=== PATIENT | male | born 1955 | race American Indian/Alaskan Native ===

== ENCOUNTER 2018-12-01 16:02 | Inpatient (IN) | payer MEDICARE, MEDICAID | END 2018-12-09 12:30 | disposition home or self-care (01) | LOC: ICU 2S 12-02 01:04 → SUR 3N 12-05 10:30 → ER 16:02 → SUR 3N 12-03 15:00 → PACU 23:28 | PROC: 0DTJ0ZZ Resection of Appendix, Open Approach (ICD-10-PCS; principal; 2018-12-01 21:33) | PROC: 0DN80ZZ Release Small Intestine, Open Approach (ICD-10-PCS; 2018-12-01 21:33) | DX: K35.32 Acute appendicitis with perforation, localized peritonitis, and gangrene, without abscess (principal); K65.1 Peritoneal abscess; K56.7 Ileus, unspecified; I25.10 Atherosclerotic heart disease of native coronary artery without angina pectoris; E78.00 Pure hypercholesterolemia, unspecified; K66.0 Peritoneal adhesions (postprocedural) (postinfection) ==

== ENCOUNTER 2021-04-30 11:45 | Emergency (ER) | payer MEDICARE, MEDICAID ==
[~2021-04-30] VITALS: Ht 177.8 cm; Wt 86.0 kg
[~2021-04-30 11:45] MED LIST: ALPR-624 PO; CITA10TA9 PO; FAMO40TA7 PO; SPIR25TA5 PO; THY60T PO; ZOLP10TA5 PO
--- NOTE | 2021-04-30 14:20 | NUR ---
Spoke with pt's . stated that his normal O2 sats are in the high 80's and he was incont. of urine twice over the past few days.
[2021-04-30 14:29] LABS: BASOPHILS # (AUTO) 0.1 X10'3 (0-0.2); BASOPHILS % (AUTO) 1.2 % (0-1); EOSINOPHILS # (AUTO) 0.1 X10'3 (0-0.9); EOSINOPHILS % (AUTO) 1.8 % (0-6); HEMATOCRIT 47.6 % (42.0-52.0); HEMOGLOBIN 15.1 g/dl (14.0-17.9); LYMPHOCYTES # (AUTO) 1.2 X10'3 (1.1-4.8); LYMPHOCYTES % (AUTO) 16.3 % (21-51); MEAN CORPUSCULAR HEMOGLOBIN 28.5 PG (27.0-31.0); MEAN CORPUSCULAR HGB CONC 31.8 g/dL (33.0-36.5); MEAN CORPUSCULAR VOLUME 89.7 FL (78-98); MEAN PLATELET VOLUME 7.5 FL (7.4-10.4); MONOCYTES # (AUTO) 0.8 X10'3 (0-0.9); NEUTROPHILS # (AUTO) 5.4 X10'3 (1.8-7.7); NEUTROPHILS % (AUTO) 70.7 % (42-75); PLATELET COUNT 171 X10'3 (140-440); RED CELL DISTRIBUTION WIDTH 16.1 % (11.5-14.5); WHITE BLOOD COUNT 7.6 X10'3 (4.5-11.0)
[2021-04-30 14:48] LABS: ALANINE AMINOTRANSFERASE 27 U/L (12-78); ALBUMIN 3.6 G/DL (3.4-5.0); ALKALINE PHOSPHATASE 101 IU/L (46-116); ANION GAP 5 (8-16); ASPARTATE AMINO TRANSFERASE 18 U/L (10-37); BILIRUBIN,TOTAL 0.3 MG/DL (0.1-1.0); BLOOD UREA NITROGEN 25 MG/DL (7-18); BUN/CREATININE RATIO 18.2 (5.4-32.0); CALCIUM 7.9 MG/DL (8.5-10.1); CHLORIDE 107 MMOL/L (99-107); CREATININE 1.37 MG/DL (0.60-1.10); GLUCOSE 102 MG/DL (70-104); POTASSIUM 5.4 MMOL/L (3.5-5.1); SODIUM 147 MMOL/L (135-145); TOTAL CARBON DIOXIDE 35.5 MMOL/L (24-32); TOTAL PROTEIN 7.1 G/DL (6.4-8.2); eGFR 52 ML/MIN
[2021-04-30 14:51] LABS: CLARITY,URINE CLEAR (Clear); COLOR,URINE YELLOW (Yellow); GLUCOSE, URINE NEGATIVE (Neg); KETONES,URINE NEGATIVE (Neg); LEUKOCYTE ESTERASE ,URINE NEGATIVE (Neg); NITRITES, URINE NEGATIVE (Neg); OCCULT BLOOD,URINE NEGATIVE (Neg); PH,URINE 5.5 (4.8-8.0); PROTEIN,URINE 30 mg/dl (Neg)
[2021-04-30 14:54] LABS: UA COLLECTION TYPE STRAIGHT CATH
[2021-04-30 14:59] VITALS: BP 151/98
[2021-04-30 15:08] LABS: BACTERIA,URINE FEW /HPF (Neg); RBC,URINE NONE SEEN /HPF (0-2); SQUAMOUS EPITHELIAL CELL,UR FEW /LPF (FEW)
[2021-04-30 15:09] LABS: CELLULAR CAST 0-4 /LPF (NEGATIVE); MUCUS STRANDS MODERATE /LPF (Neg)
[2021-04-30] MEDS ORDERED: CefTRIAXone/D5W-Rocephin 1gm 50 ML IV ONE (15:20)
[2021-04-30] MEDS ORDERED: normal saline 1000ml 1,000 ML IV ONE (15:20)
[2021-04-30] MEDS ORDERED: CEFD300C3 PO (15:21)
== END 2021-04-30 17:20 | disposition home or self-care (01) ==
LOC: ER 11:46
DX: N39.0 Urinary tract infection, site not specified (principal); Z20.822 Contact with and (suspected) exposure to COVID-19; N17.9 Acute kidney failure, unspecified; R09.81 Nasal congestion; R51.9 Headache, unspecified; I25.10 Atherosclerotic heart disease of native coronary artery without angina pectoris; E78.00 Pure hypercholesterolemia, unspecified; I10 Essential (primary) hypertension; K21.9 Gastro-esophageal reflux disease without esophagitis; Z86.14 Personal history of Methicillin resistant Staphylococcus aureus infection; Z85.841 Personal history of malignant neoplasm of brain; Z98.890 Other specified postprocedural states; Z72.89 Other problems related to lifestyle; Z88.5 Allergy status to narcotic agent; Z79.2 Long term (current) use of antibiotics; Z79.899 Other long term (current) drug therapy
CPT/HCPCS: 51702; 96365; 99285; J0696; J7030; 36415; 70450; 71045; 80053; 81001; 83605; 84145; 85025; 87040; 87088; 87635; C9803

== ENCOUNTER 2021-05-02 13:17 | Inpatient (IN) | payer MEDICARE, MEDICAID ==
[~2021-05-02] VITALS: Ht 177.8 cm; Wt 90.9 kg
[~2021-05-02 13:17] MED LIST changes: +CEFD300C3 PO
[2021-05-02 14:06] LABS: BASOPHILS # (AUTO) 0.1 X10'3 (0-0.2); EOSINOPHILS # (AUTO) 0.1 X10'3 (0-0.9); EOSINOPHILS % (AUTO) 2.2 % (0-6); HEMATOCRIT 44.5 % (42.0-52.0); HEMOGLOBIN 14.2 g/dl (14.0-17.9); LYMPHOCYTES % (AUTO) 17.3 % (21-51); MEAN CORPUSCULAR HEMOGLOBIN 28.2 PG (27.0-31.0); MEAN CORPUSCULAR HGB CONC 31.9 g/dL (33.0-36.5); MEAN CORPUSCULAR VOLUME 88.5 FL (78-98); MEAN PLATELET VOLUME 7.3 FL (7.4-10.4); MONOCYTES # (AUTO) 0.6 X10'3 (0-0.9); MONOCYTES % (AUTO) 9.7 % (2-12); NEUTROPHILS % (AUTO) 69.8 % (42-75); PLATELET COUNT 158 X10'3 (140-440); RED BLOOD COUNT 5.03 X10'6 (4.70-6.10); RED CELL DISTRIBUTION WIDTH 15.9 % (11.5-14.5); WHITE BLOOD COUNT 5.7 X10'3 (4.5-11.0)
[2021-05-02] MEDS ORDERED: levoFLOXACIN-Levaquin 750MG/D5 150 ML IV STA (14:18)
[2021-05-02 14:21] LABS: PARTIAL THROMBOPLASTIN TIME 27 SECONDS (22-32)
[2021-05-02 14:25] LABS: ALANINE AMINOTRANSFERASE 26 U/L (12-78); ALBUMIN 3.4 G/DL (3.4-5.0); ALKALINE PHOSPHATASE 94 IU/L (46-116); ANION GAP 3 (8-16); ASPARTATE AMINO TRANSFERASE 17 U/L (10-37); BILIRUBIN,TOTAL 0.6 MG/DL (0.1-1.0); BLOOD UREA NITROGEN 27 MG/DL (7-18); BUN/CREATININE RATIO 20.3 (5.4-32.0); CHLORIDE 108 MMOL/L (99-107); CREATININE 1.33 MG/DL (0.60-1.10); GLUCOSE 103 MG/DL (70-104); POTASSIUM 5.2 MMOL/L (3.5-5.1); SODIUM 147 MMOL/L (135-145); TOTAL CARBON DIOXIDE 36.2 MMOL/L (24-32); TOTAL PROTEIN 6.7 G/DL (6.4-8.2); eGFR 54 ML/MIN
[2021-05-02 15:19] LABS: ABG BASE EXCESS 4.8 mmol/L (-2.0-2.0); ABG HCO3 34.5 mmol/L (22.0-26.0); ABG OXYGEN SATURATION 75.9 % (94-97); ABG PO2 (T) 44.6 mmHg (75.0-100.0); ALLEN'S TEST POSITIVE; FCOHb 1.9 % (0.0-3.9); FMetHb 0.2 % (0.0-1.5); FO2Hb 74.3 % (94-97); TOTAL HEMOGLOBIN 15.1 G/dl (14.0-18.0)
[2021-05-02] MEDS ORDERED: potassium Cl 40MEQ/1/2NS 520ml 520 ML IV PRN ×2 (16:15)
[2021-05-02] MEDS ORDERED: PERFLUTREN PROTEIN-A MICROSPHR (Optison) 0.22 MG/ML 3ML VIAL IV ONE (16:15)
[2021-05-02] MEDS ORDERED: ondansetron/PF 4mg/2ml inj IV PRN (16:15)
[2021-05-02] MEDS ORDERED: mag hydrox/Alum hydrox/simeth 30ml oral suspension PO PRN (16:15)
[2021-05-02] MEDS ORDERED: magnesium hydroxide 30ml (MOM) UD suspension PO PRN (16:15)
[2021-05-02] MEDS ORDERED: TEST75GE10 TP (16:31)
[2021-05-02] MEDS ORDERED: CHOL10006 PO (16:31)
[2021-05-02] MEDS ORDERED: OMEP-50 PO (16:31)
[2021-05-02] MEDS ORDERED: THY60T PO (16:31)
[2021-05-02] MEDS ORDERED: ZOLP10TA PO (16:31)
[2021-05-02] MEDS: normal saline 1000ml 1,000 ML IV SCH ×3 (16:53→20:14)
[2021-05-02] MEDS ORDERED: PERFLUTREN PROTEIN-A MICROSPHR (Optison) 0.22 MG/ML 3ML VIAL IV PRN (17:15)
[2021-05-02] MEDS: K and/or MAG REPLACEMENT MC SCH (20:00)
[2021-05-02] MEDS: heparin, porcine 5000 units/ml vial SQ SCH (20:00)
[2021-05-02] MEDS: docusate sod 100mg capsule PO SCH (20:00)
--- NOTE | 2021-05-02 20:00 | NUR ---
Pt is anxious and requesting xanax 1mg as he is prescribed at home. Paging Dr. Santos to request order. Will continue to monitor.
[2021-05-02 20:28] LABS: CLARITY,URINE CLEAR (Clear); COLOR,URINE YELLOW (Yellow); GLUCOSE, URINE NEGATIVE (Neg); KETONES,URINE NEGATIVE (Neg); LEUKOCYTE ESTERASE ,URINE NEGATIVE (Neg); NITRITES, URINE NEGATIVE (Neg); OCCULT BLOOD,URINE NEGATIVE (Neg); PH,URINE 5.5 (4.8-8.0); PROTEIN,URINE NEGATIVE (Neg)
[2021-05-02 20:42] LABS: UA COLLECTION TYPE NON-SPECIFIED
[2021-05-02 20:55] LABS: URINE AMPHETAMINE SCREEN NEGATIVE (Neg); URINE BARBITUATE SCREEN NEGATIVE (Neg); URINE BENZODIAZEPINES SCREEN NEGATIVE (Neg); URINE CANNABINOID SCREEN NEGATIVE (Neg); URINE COCAINE SCREEN NEGATIVE (Neg); URINE METHADONE SCREEN NEGATIVE (Neg); URINE OPIATE SCREEN NEGATIVE (Neg); URINE PHENCYCLIDINE SCREEN NEGATIVE (Neg)
[2021-05-02] MEDS: zolpidem 5mg tablet PO PRN (22:15)
[2021-05-03] MEDS: acetaminophen 325mg tablet PO PRN ×2 (06:27→21:09)
--- NOTE | 2021-05-03 07:31 | NUR ---
pt's phone [phone]
[2021-05-03 07:50] LABS: BASOPHILS # (AUTO) 0.1 X10'3 (0-0.2); BASOPHILS % (AUTO) 1.2 % (0-1); EOSINOPHILS # (AUTO) 0.2 X10'3 (0-0.9); EOSINOPHILS % (AUTO) 2.8 % (0-6); HEMATOCRIT 45.1 % (42.0-52.0); HEMOGLOBIN 14.3 g/dl (14.0-17.9); LYMPHOCYTES # (AUTO) 1.4 X10'3 (1.1-4.8); LYMPHOCYTES % (AUTO) 21.7 % (21-51); MEAN CORPUSCULAR HEMOGLOBIN 28.3 PG (27.0-31.0); MEAN CORPUSCULAR HGB CONC 31.6 g/dL (33.0-36.5); MEAN CORPUSCULAR VOLUME 89.6 FL (78-98); MEAN PLATELET VOLUME 7.3 FL (7.4-10.4); MONOCYTES # (AUTO) 0.6 X10'3 (0-0.9); MONOCYTES % (AUTO) 9.9 % (2-12); NEUTROPHILS % (AUTO) 64.4 % (42-75); PLATELET COUNT 140 X10'3 (140-440); RED BLOOD COUNT 5.03 X10'6 (4.70-6.10); RED CELL DISTRIBUTION WIDTH 15.7 % (11.5-14.5); WHITE BLOOD COUNT 6.3 X10'3 (4.5-11.0)
[2021-05-03 08:00] LABS: ALANINE AMINOTRANSFERASE 25 U/L (12-78); ALBUMIN 3.4 G/DL (3.4-5.0); ALBUMIN/GLOBULIN RATIO 1.1 (1.1-1.5); ALKALINE PHOSPHATASE 111 IU/L (46-116); ANION GAP 3 (8-16); ASPARTATE AMINO TRANSFERASE 22 U/L (10-37); BILIRUBIN,TOTAL 0.9 MG/DL (0.1-1.0); BLOOD UREA NITROGEN 23 MG/DL (7-18); BUN/CREATININE RATIO 19.5 (5.4-32.0); CHLORIDE 108 MMOL/L (99-107); CREATININE 1.18 MG/DL (0.60-1.10); GLUCOSE 75 MG/DL (70-104); POTASSIUM 4.6 MMOL/L (3.5-5.1); SODIUM 145 MMOL/L (135-145); TOTAL CARBON DIOXIDE 33.6 MMOL/L (24-32); TOTAL PROTEIN 6.6 G/DL (6.4-8.2); eGFR 62 ML/MIN
[2021-05-03] MEDS ORDERED: CefTRIAXone/D5W-Rocephin 1gm 50 ML IV SCH (08:00)
[2021-05-03] MEDS: docusate sod 100mg capsule PO SCH ×2 (08:00→20:00)
[2021-05-03] MEDS: K and/or MAG REPLACEMENT MC SCH ×2 (08:00→20:00)
[2021-05-03] MEDS: pantoprazole 40mg Tablet.DR PO SCH (13:08)
[2021-05-03] MEDS: lisinopril 5mg tablet PO SCH (13:09)
[2021-05-03] MEDS: thyroid, pork 30mg tablet PO SCH (13:09)
[2021-05-03] MEDS: heparin, porcine 5000 units/ml vial SQ SCH ×2 (13:10→21:09)
[2021-05-03] MEDS: piperacillin/tazo 3.375gm/50ml 50 ML IV SCH (14:49)
--- NOTE | 2021-05-03 19:51 | NUR ---
PT REQUESTS TO NOT HAVE LEADS PLACED ON HIM. HE IS OK WITH BP CUFF AND O2 SAT ON FINGER.
[2021-05-03] MEDS: zolpidem 5mg tablet PO PRN (21:08)
[2021-05-04] MEDS: piperacillin/tazo 3.375gm/50ml 50 ML IV SCH ×4 (00:32→23:24)
--- NOTE | 2021-05-04 01:00 | NUR ---
PT DESATS QUICKLY TO LOW 60S WHEN HE TAKES HIS OXYGEN OFF. REPEATEDLY HAS GOTTEN OFF BED TO WANDER IN UNIT. PT BROUGHT BACK TO BED AND PLACED BACK ON OXYGEN. SATURATION BACK TO 90S WITHIN 3 MINUTES.
[2021-05-04 04:51] LABS: BASOPHILS # (AUTO) 0.1 X10'3 (0-0.2); BASOPHILS % (AUTO) 1.2 % (0-1); EOSINOPHILS # (AUTO) 0.2 X10'3 (0-0.9); EOSINOPHILS % (AUTO) 3.4 % (0-6); HEMATOCRIT 46.2 % (42.0-52.0); HEMOGLOBIN 14.8 g/dl (14.0-17.9); LYMPHOCYTES # (AUTO) 1.2 X10'3 (1.1-4.8); LYMPHOCYTES % (AUTO) 19.6 % (21-51); MEAN CORPUSCULAR HEMOGLOBIN 28.2 PG (27.0-31.0); MEAN CORPUSCULAR HGB CONC 32.1 g/dL (33.0-36.5); MEAN PLATELET VOLUME 7.4 FL (7.4-10.4); MONOCYTES # (AUTO) 0.7 X10'3 (0-0.9); MONOCYTES % (AUTO) 10.5 % (2-12); NEUTROPHILS # (AUTO) 4.1 X10'3 (1.8-7.7); NEUTROPHILS % (AUTO) 65.3 % (42-75); PLATELET COUNT 150 X10'3 (140-440); RED BLOOD COUNT 5.25 X10'6 (4.70-6.10); RED CELL DISTRIBUTION WIDTH 15.4 % (11.5-14.5); WHITE BLOOD COUNT 6.3 X10'3 (4.5-11.0)
[2021-05-04 05:04] LABS: ALANINE AMINOTRANSFERASE 21 U/L (12-78); ALBUMIN 3.5 G/DL (3.4-5.0); ALBUMIN/GLOBULIN RATIO 1.1 (1.1-1.5); ALKALINE PHOSPHATASE 116 IU/L (46-116); ANION GAP 0 (8-16); ASPARTATE AMINO TRANSFERASE 23 U/L (10-37); BILIRUBIN,TOTAL 1.4 MG/DL (0.1-1.0); BLOOD UREA NITROGEN 18 MG/DL (7-18); BUN/CREATININE RATIO 15.1 (5.4-32.0); CALCIUM 8.3 MG/DL (8.5-10.1); CHLORIDE 105 MMOL/L (99-107); CREATININE 1.19 MG/DL (0.60-1.10); GLUCOSE 73 MG/DL (70-104); POTASSIUM 4.4 MMOL/L (3.5-5.1); SODIUM 144 MMOL/L (135-145); TOTAL CARBON DIOXIDE 38.8 MMOL/L (24-32); TOTAL PROTEIN 6.7 G/DL (6.4-8.2); eGFR 62 ML/MIN
--- NOTE | 2021-05-04 06:55 | NUR ---
Patient in room ED HALL13. I have received report from Torrie HUFF and had the opportunity to ask questions to prepare to assume patient care when pt brought to PCU 3025B. Per Torrie, pt impulsive, with intermittent confusion. BP elevated at 159/105, but SPO2 stable. no chest pain. room prepared.
[2021-05-04 08:00] VITALS: BP 196/112
[2021-05-04] MEDS: K and/or MAG REPLACEMENT MC SCH ×2 (08:00→20:00)
--- NOTE | 2021-05-04 08:23 | NUR ---
Pt hypertensive. Dr. Doty paged. PAGER ID: [phone] MESSAGE: RE: Rickey Troncoso: [id number]: + HTN: 196/112. will give scheduled lisinopril. I would like school bus monitor orders, and possibly prn antihypertensive? Thank you -Denice #[phone]
[2021-05-04] MEDS: pantoprazole 40mg Tablet.DR PO SCH (08:56)
[2021-05-04] MEDS: lisinopril 5mg tablet PO SCH (08:57)
[2021-05-04] MEDS: hydrALAZINE 20mg/ml inj. IV PRN ×2 (08:58→20:27)
[2021-05-04] MEDS: heparin, porcine 5000 units/ml vial SQ SCH ×3 (08:58→20:27)
[2021-05-04] MEDS: docusate sod 100mg capsule PO SCH ×2 (09:06→19:36)
--- NOTE | 2021-05-04 10:20 | NUR ---
zosyn administered when arrived from pharmacy. thyroid med will be administered when arrives/coordinate with empty stomach.
[2021-05-04 11:00] VITALS: BP 140/84
[2021-05-04] MEDS: thyroid, pork 30mg tablet PO SCH (11:40)
[2021-05-04] MEDS ORDERED: amLODIPine 5mg tablet PO ONE (13:25)
[2021-05-04 15:00] VITALS: BP 153/88
[2021-05-04] MEDS: normal saline 1000ml 1,000 ML IV SCH (17:14)
[2021-05-04 18:00] VITALS: BP 171/94
--- NOTE | 2021-05-04 18:43 | NUR ---
Patient in room PCU 3025. I have received report from DARIA Galdamez and had the opportunity to ask questions and assume patient care.
--- NOTE | 2021-05-04 19:01 | NUR ---
Problems reprioritized. Patient report given, questions answered & plan of care reviewed with Amy HUFF. Pt supine in bed, no SOB.
[2021-05-04] MEDS: acetaminophen 325mg tablet PO PRN (20:55)
[2021-05-04] MEDS: zolpidem 5mg tablet PO PRN ×2 (20:56→22:31)
--- NOTE | 2021-05-04 21:30 | NUR ---
Placed patient on bedside O2 monitor as he states his O2 drops when sleeping. RT came to see patient, states bedside O2 monitor reading incorrectly. Placed vitals machine with patient. RT gave breathing treatment and moved him from 30% venti mask to 40% venti mask.
[2021-05-04] MEDS: ipratropium/albuterol 3ml nebule NEB PRN (21:56)
--- NOTE | 2021-05-04 22:47 | NUR ---
Per tele, Pt had 10 second run of SVT. paged.
[2021-05-04 22:55] VITALS: BP 129/78
--- NOTE | 2021-05-04 23:55 | NUR ---
paged 2nd time, no response from 1st page.
--- NOTE | 2021-05-05 00:26 | NUR ---
made aware, no new orders.
[2021-05-05 02:00] VITALS: BP 144/87
[2021-05-05] MEDS: acetaminophen 325mg tablet PO PRN ×2 (02:32→21:45)
[2021-05-05 05:54] LABS: BASOPHILS # (AUTO) 0.1 X10'3 (0-0.2); BASOPHILS % (AUTO) 1.3 % (0-1); EOSINOPHILS # (AUTO) 0.2 X10'3 (0-0.9); EOSINOPHILS % (AUTO) 2.9 % (0-6); HEMATOCRIT 47.8 % (42.0-52.0); HEMOGLOBIN 15.4 g/dl (14.0-17.9); LYMPHOCYTES # (AUTO) 1.3 X10'3 (1.1-4.8); LYMPHOCYTES % (AUTO) 21.4 % (21-51); MEAN CORPUSCULAR HEMOGLOBIN 28.1 PG (27.0-31.0); MEAN CORPUSCULAR HGB CONC 32.2 g/dL (33.0-36.5); MEAN CORPUSCULAR VOLUME 87.3 FL (78-98); MEAN PLATELET VOLUME 6.9 FL (7.4-10.4); MONOCYTES # (AUTO) 0.7 X10'3 (0-0.9); MONOCYTES % (AUTO) 11.4 % (2-12); NEUTROPHILS # (AUTO) 3.9 X10'3 (1.8-7.7); PLATELET COUNT 152 X10'3 (140-440); RED BLOOD COUNT 5.47 X10'6 (4.70-6.10); RED CELL DISTRIBUTION WIDTH 15.5 % (11.5-14.5); WHITE BLOOD COUNT 6.2 X10'3 (4.5-11.0)
[2021-05-05 06:06] LABS: ALANINE AMINOTRANSFERASE 21 U/L (12-78); ALBUMIN 3.4 G/DL (3.4-5.0); ALKALINE PHOSPHATASE 106 IU/L (46-116); ANION GAP 3 (8-16); ASPARTATE AMINO TRANSFERASE 23 U/L (10-37); BILIRUBIN,TOTAL 1.2 MG/DL (0.1-1.0); BLOOD UREA NITROGEN 16 MG/DL (7-18); BUN/CREATININE RATIO 12.8 (5.4-32.0); CALCIUM 8.5 MG/DL (8.5-10.1); CHLORIDE 106 MMOL/L (99-107); CREATININE 1.25 MG/DL (0.60-1.10); GLUCOSE 110 MG/DL (70-104); POTASSIUM 4.1 MMOL/L (3.5-5.1); SODIUM 144 MMOL/L (135-145); TOTAL CARBON DIOXIDE 35.5 MMOL/L (24-32); TOTAL PROTEIN 6.7 G/DL (6.4-8.2); eGFR 58 ML/MIN
--- NOTE | 2021-05-05 06:39 | NUR ---
Problems reprioritized. Patient report given, questions answered & plan of care reviewed with DARIA Sow.
--- NOTE | 2021-05-05 06:40 | NUR ---
Patient in room PCU 3025. I have received report from DARIA Reyes and had the opportunity to ask questions and assume patient care.
[2021-05-05 07:00] VITALS: BP 122/89
[2021-05-05] MEDS: docusate sod 100mg capsule PO SCH ×2 (08:00→19:35)
[2021-05-05] MEDS: K and/or MAG REPLACEMENT MC SCH ×2 (08:00→19:35)
[2021-05-05] MEDS: ipratropium/albuterol 3ml nebule NEB PRN (08:17)
[2021-05-05] MEDS: pantoprazole 40mg Tablet.DR PO SCH (09:34)
[2021-05-05] MEDS: thyroid, pork 30mg tablet PO SCH (09:34)
[2021-05-05] MEDS: amLODIPine 5mg tablet PO SCH (09:34)
[2021-05-05] MEDS: piperacillin/tazo 3.375gm/50ml 50 ML IV SCH ×3 (09:34→23:01)
[2021-05-05] MEDS: lisinopril 5mg tablet PO SCH (09:35)
[2021-05-05] MEDS: heparin, porcine 5000 units/ml vial SQ SCH ×2 (09:36→19:36)
--- NOTE | 2021-05-05 10:28 | NUR ---
Paged Dr Doty PAGER ID: [phone] MESSAGE: Rickey Lanier [id number] Pt is requesting to be a full code. The would like an update and has questions. Candy [phone] Thanks Magi [phone]
[2021-05-05 11:00] VITALS: BP 139/86
--- NOTE | 2021-05-05 11:22 | NUR ---
Malnutrition consult. Pt admitted w/ increased confusion, though A&O x 4 today per EMR. 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 Pt seen by ST today and recommended SB6. Pt unable to verbally communicated d/t tracheostomy, but able to use hand gestures. Pt denies recent wt loss, denies decrease in appetite. No visible wasting observed at bedside, no edema noted. At this time, pt does not meet minimum criteria for malnutrition. Will continue to monitor. Addendum: 05/05/21 at [address] Amended: Links added.
[2021-05-05] MEDS ORDERED: ipratropium/albuterol 3ml nebule NEB SCH (14:00)
--- NOTE | 2021-05-05 14:57 | NUR ---
Re Rickey Troncoso [id number] Pt's water humidification bottle is empty. Thanks
[2021-05-05 15:00] VITALS: BP 150/92
[2021-05-05] MEDS: ipratropium/albuterol 3ml nebule NEB SCH ×2 (15:31→21:46)
--- NOTE | 2021-05-05 15:57 | NUR ---
Paged Dr Doty PAGER ID: [phone] MESSAGE: Rickey Lanier [id number] Can you call me please? Pt has bouts of sleep apnea when sleeping. Thanks Magi [phone]
[2021-05-05 18:00] VITALS: BP 156/84
--- NOTE | 2021-05-05 18:24 | NUR ---
Patient in room PCU 3025. I have received report from Magi HUFF and had the opportunity to ask questions and assume patient care.
--- NOTE | 2021-05-05 18:28 | NUR ---
Problems reprioritized. Patient report given, questions answered & plan of care reviewed with DARIA Calixto. Pt sitting up eating dinner independently. All pt needs met at this time.
[2021-05-05] MEDS: lactobacillus rhamnosus 10,000 MMU CELLS/CAPSULE PO SCH (19:35)
[2021-05-05 22:00] VITALS: BP 168/101
[2021-05-05] MEDS: hydrALAZINE 20mg/ml inj. IV PRN (22:29)
[2021-05-05] MEDS: zolpidem 5mg tablet PO PRN (22:34)
[2021-05-06 02:00] VITALS: BP 107/73
[2021-05-06] MEDS: ipratropium/albuterol 3ml nebule NEB SCH ×4 (02:13→21:00)
--- NOTE | 2021-05-06 06:15 | NUR ---
Problems reprioritized. Patient report given, questions answered & plan of care reviewed with Magi HUFF at bedside.
[2021-05-06 06:24] LABS: BASOPHILS # (AUTO) 0.1 X10'3 (0-0.2); BASOPHILS % (AUTO) 0.8 % (0-1); EOSINOPHILS # (AUTO) 0.2 X10'3 (0-0.9); EOSINOPHILS % (AUTO) 3.2 % (0-6); HEMATOCRIT 46.7 % (42.0-52.0); HEMOGLOBIN 15.1 g/dl (14.0-17.9); LYMPHOCYTES # (AUTO) 1.7 X10'3 (1.1-4.8); LYMPHOCYTES % (AUTO) 25.2 % (21-51); MEAN CORPUSCULAR HEMOGLOBIN 28.2 PG (27.0-31.0); MEAN CORPUSCULAR HGB CONC 32.3 g/dL (33.0-36.5); MEAN CORPUSCULAR VOLUME 87.4 FL (78-98); MEAN PLATELET VOLUME 7.6 FL (7.4-10.4); MONOCYTES # (AUTO) 0.8 X10'3 (0-0.9); MONOCYTES % (AUTO) 11.4 % (2-12); NEUTROPHILS # (AUTO) 3.9 X10'3 (1.8-7.7); NEUTROPHILS % (AUTO) 59.4 % (42-75); PLATELET COUNT 155 X10'3 (140-440); RED BLOOD COUNT 5.35 X10'6 (4.70-6.10); RED CELL DISTRIBUTION WIDTH 15.8 % (11.5-14.5); WHITE BLOOD COUNT 6.6 X10'3 (4.5-11.0)
[2021-05-06 06:40] LABS: ALANINE AMINOTRANSFERASE 18 U/L (12-78); ALBUMIN 3.4 G/DL (3.4-5.0); ALBUMIN/GLOBULIN RATIO 1.1 (1.1-1.5); ALKALINE PHOSPHATASE 97 IU/L (46-116); ANION GAP 8 (8-16); ASPARTATE AMINO TRANSFERASE 19 U/L (10-37); BILIRUBIN,TOTAL 0.9 MG/DL (0.1-1.0); BLOOD UREA NITROGEN 14 MG/DL (7-18); BUN/CREATININE RATIO 12.4 (5.4-32.0); CALCIUM 8.8 MG/DL (8.5-10.1); CHLORIDE 108 MMOL/L (99-107); CREATININE 1.13 MG/DL (0.60-1.10); GLUCOSE 98 MG/DL (70-104); POTASSIUM 3.9 MMOL/L (3.5-5.1); SODIUM 148 MMOL/L (135-145); TOTAL CARBON DIOXIDE 32.5 MMOL/L (24-32); TOTAL PROTEIN 6.5 G/DL (6.4-8.2); eGFR 65 ML/MIN
[2021-05-06 07:00] VITALS: BP 159/96
[2021-05-06] MEDS: K and/or MAG REPLACEMENT MC SCH ×2 (08:00→20:00)
[2021-05-06] MEDS: docusate sod 100mg capsule PO SCH ×2 (08:00→20:00)
[2021-05-06] MEDS: thyroid, pork 30mg tablet PO SCH (08:36)
[2021-05-06] MEDS: piperacillin/tazo 3.375gm/50ml 50 ML IV SCH ×2 (08:36→15:51)
[2021-05-06] MEDS: lactobacillus rhamnosus 10,000 MMU CELLS/CAPSULE PO SCH ×2 (08:36→19:13)
[2021-05-06] MEDS: heparin, porcine 5000 units/ml vial SQ SCH ×2 (08:39→19:14)
[2021-05-06] MEDS: pantoprazole 40mg Tablet.DR PO SCH (08:39)
--- NOTE | 2021-05-06 09:19 | NUR ---
Initial: Pt admitted w/ increased confusion and SOB, though A&O x 4 today per EMR. 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 Pt seen by ST 05/05 and recommended SB6. Pt able to eat mostly 100% of meals since admission. No N/V/D noted, LB 05/05. No nutritional intervention implemented at this time, will continue to monitor. Recs: 1. Continue Regular/SB6 diet per ST recs 2. Bowel care per rx 3. Weekly wts Addendum: 05/06/21 at 0920 by [address] M [address]or[address]ano RD Amended: Links added.
[2021-05-06 11:00] VITALS: BP 130/79
[2021-05-06] MEDS: amLODIPine 5mg tablet PO SCH (12:35)
[2021-05-06] MEDS: furosemide 20 MG/2 ML vial IV SCH ×2 (12:35→19:13)
--- NOTE | 2021-05-06 12:55 | NUR ---
Paged Respiratory to discuss pt being weaned off . Re Rickey Troncoso [id number] Pepe can you call me please. [phone] Thanks :)
--- NOTE | 2021-05-06 13:58 | NUR ---
Paged Dr Bryson PAGER ID: [phone] MESSAGE: Marika Troncoso Rickey [id number] Pt has been off 02 for 1.5 hours, sating around 90-93%. When he fell asleep, his 02 dropped into the 60s, after aroused, went back to 94% on room air. Thanks Magi [phone]
[2021-05-06 15:00] VITALS: BP 128/83
[2021-05-06] MEDS: lisinopril 5mg tablet PO SCH (15:52)
[2021-05-06] MEDS: normal saline 1000ml 1,000 ML IV SCH (17:07)
[2021-05-06 18:00] VITALS: BP 91/63
--- NOTE | 2021-05-06 18:00 | NUR ---
Patient in room PCU 3025. I have received report from Christ and had the opportunity to ask questions and assume patient care.
--- NOTE | 2021-05-06 18:36 | NUR ---
Problems reprioritized. Patient report given, questions answered & plan of care reviewed with DARIA Henriquez. Pt sitting up in bed, watching tv comfortably. All pt needs met at this time.
--- NOTE | 2021-05-06 21:52 | NUR ---
TC FROM - REQUESTING NEW CHEST XRAY
[2021-05-06 22:00] VITALS: BP 168/107
[2021-05-07] MEDS: zolpidem 5mg tablet PO PRN (00:14)
[2021-05-07] MEDS: piperacillin/tazo 3.375gm/50ml 50 ML IV SCH ×2 (00:14→10:22)
[2021-05-07] MEDS: hydrALAZINE 20mg/ml inj. IV PRN (01:54)
[2021-05-07 02:00] VITALS: BP 116/65
--- NOTE | 2021-05-07 02:19 | NUR ---
Isabele reported BP of 201/117 at 0200, Gave pt PRN hydralazine 10mg, BP at 0211 116/65. pt doing well, doesnt report any side effects.
[2021-05-07] MEDS: ipratropium/albuterol 3ml nebule NEB SCH ×3 (02:21→15:00)
[2021-05-07 06:00] VITALS: BP 90/61
[2021-05-07 06:08] LABS: BASOPHILS # (AUTO) 0.1 X10'3 (0-0.2); BASOPHILS % (AUTO) 0.9 % (0-1); EOSINOPHILS # (AUTO) 0.3 X10'3 (0-0.9); EOSINOPHILS % (AUTO) 3.9 % (0-6); HEMATOCRIT 48.8 % (42.0-52.0); HEMOGLOBIN 15.6 g/dl (14.0-17.9); LYMPHOCYTES % (AUTO) 22.8 % (21-51); MEAN CORPUSCULAR HEMOGLOBIN 28.2 PG (27.0-31.0); MEAN CORPUSCULAR HGB CONC 32.1 g/dL (33.0-36.5); MEAN CORPUSCULAR VOLUME 87.9 FL (78-98); MEAN PLATELET VOLUME 7.7 FL (7.4-10.4); MONOCYTES # (AUTO) 0.9 X10'3 (0-0.9); MONOCYTES % (AUTO) 10.6 % (2-12); NEUTROPHILS # (AUTO) 5.3 X10'3 (1.8-7.7); NEUTROPHILS % (AUTO) 61.8 % (42-75); PLATELET COUNT 163 X10'3 (140-440); RED BLOOD COUNT 5.55 X10'6 (4.70-6.10); RED CELL DISTRIBUTION WIDTH 16.2 % (11.5-14.5); WHITE BLOOD COUNT 8.6 X10'3 (4.5-11.0)
--- NOTE | 2021-05-07 06:30 | NUR ---
Problems reprioritized. Patient report given, questions answered & plan of care reviewed with Mandi.
[2021-05-07 06:38] LABS: ALANINE AMINOTRANSFERASE 19 U/L (12-78); ALBUMIN 3.6 G/DL (3.4-5.0); ALBUMIN/GLOBULIN RATIO 1.2 (1.1-1.5); ALKALINE PHOSPHATASE 93 IU/L (46-116); ANION GAP 9 (8-16); ASPARTATE AMINO TRANSFERASE 28 U/L (10-37); BILIRUBIN,TOTAL 1.1 MG/DL (0.1-1.0); BLOOD UREA NITROGEN 22 MG/DL (7-18); BUN/CREATININE RATIO 15.6 (5.4-32.0); CALCIUM 8.8 MG/DL (8.5-10.1); CHLORIDE 107 MMOL/L (99-107); CREATININE 1.41 MG/DL (0.60-1.10); GLUCOSE 86 MG/DL (70-104); POTASSIUM 3.7 MMOL/L (3.5-5.1); SODIUM 148 MMOL/L (135-145); TOTAL CARBON DIOXIDE 31.6 MMOL/L (24-32); TOTAL PROTEIN 6.7 G/DL (6.4-8.2); eGFR 51 ML/MIN
--- NOTE | 2021-05-07 06:53 | NUR ---
Patient in room PCU 3025. I have received report from Florence HUFF and had the opportunity to ask questions and assume patient care. Pt semi fowlers in bed, alert to voice, trach collar in place with O2 @ 9LPM. SPO2 97%. pt verbal with hoarse voice through blocked trach stoma. safety measures in place and maintained. no s/sx acute distress
--- NOTE | 2021-05-07 07:51 | NUR ---
RT paged. "RE: alyson Troncoso [id number]: Trach collar too heavy with water, and pulling away from pt from the weight. pt becoming very anxious. please assist. Thank you, -Denice"
[2021-05-07] MEDS: K and/or MAG REPLACEMENT MC SCH (08:00)
--- NOTE | 2021-05-07 09:49 | NUR ---
Dr. Cote to see pt. requesting RT bring trach he can place now. RT paged. Addendum: 05/07/21 at 0951 by Denice Mars RN RT paged. "RE: Jamari Troncoso: [phone] Dr. Quintero here wanting RT at bedside and to being supplies to place trach hardware in stoma. -Denice "
[2021-05-07] MEDS: docusate sod 100mg capsule PO SCH (10:17)
[2021-05-07] MEDS: lactobacillus rhamnosus 10,000 MMU CELLS/CAPSULE PO SCH (10:17)
[2021-05-07] MEDS: thyroid, pork 30mg tablet PO SCH (10:17)
[2021-05-07] MEDS: pantoprazole 40mg Tablet.DR PO SCH (10:20)
[2021-05-07] MEDS: amLODIPine 5mg tablet PO SCH (10:20)
[2021-05-07] MEDS: lisinopril 5mg tablet PO SCH (10:20)
[2021-05-07] MEDS: furosemide 20 MG/2 ML vial IV SCH (10:20)
[2021-05-07] MEDS: heparin, porcine 5000 units/ml vial SQ SCH (10:21)
[2021-05-07 11:00] VITALS: BP 132/71
--- NOTE | 2021-05-07 11:17 | NUR ---
Dr Cote and Dr Bryson to unit to discuss pt care LT[facility] with trach bipap while pt asleep goal for POC. RT present. classified advertising manager notified of MD intention to sent pt to LTAC. pt in agreement with POC.
[2021-05-07] MEDS: acetaminophen 325mg tablet PO PRN (11:21)
--- NOTE | 2021-05-07 11:29 | NUR ---
Pt left for Nuc med to VQ scan lungs.
[2021-05-07] MEDS ORDERED: normal saline 1000ml 1,000 ML IV SCH (11:45)
--- NOTE | 2021-05-07 11:58 | NUR ---
Pt return from VQ scan attempt. VQ scan not completed due to complications with trach per pt. Dr. Bryson paged. "PAGER ID: [phone] MESSAGE: RE: Rickey Troncoso: [id number]: VQ scan attempt unsuccessful. per pt, they were not able to compete the test because they could not seal his trach? would you like a CT scan of lungs instead? -Denice #[phone]"
[2021-05-07] MEDS ORDERED: IODIXANOL 320 MG/ML INFUS..BTL 100ML IV ONE (12:17)
--- NOTE | 2021-05-07 15:15 | NUR ---
pt refused vs assessment.
--- NOTE | 2021-05-07 16:40 | NUR ---
Pt stable for transfer to [facility] per MD order. Report called to Fani HUFF at [facility] on [address]. all questions answered. PIV in RAC intact, patent and left for [facility] nurses to utilize for infusions. Addendum: 05/07/21 at 1717 by Denice Mars RN Pt left via [place] accompanied by ambulance personnel x2. pt transferred to [facility] without issue, no sob. no s/sx acute distress when pt left unit at 1712
== END 2021-05-07 17:16 | DRG 177 ==
LOC: ER 13:19 → ED HOLD 16:15 → EDBEDREQ 05-04 05:59 → PCU 3S 05-04 07:47
PROVIDERS: ADMIT Internal Medicine; ATTEND Family Medicine
PROC: B32T1ZZ Computerized Tomography (CT Scan) of Left Pulmonary Artery using Low Osmolar Contrast (ICD-10-PCS; principal; 2021-05-07)
PROC: B3201ZZ Computerized Tomography (CT Scan) of Thoracic Aorta using Low Osmolar Contrast (ICD-10-PCS; 2021-05-07)
PROC: B32S1ZZ Computerized Tomography (CT Scan) of Right Pulmonary Artery using Low Osmolar Contrast (ICD-10-PCS; 2021-05-07)
DX: J69.0 Pneumonitis due to inhalation of food and vomit (principal); J96.01 Acute respiratory failure with hypoxia; E87.2 Acidosis; I50.813 Acute on chronic right heart failure; I25.10 Atherosclerotic heart disease of native coronary artery without angina pectoris; E03.9 Hypothyroidism, unspecified; Z66 Do not resuscitate; E78.00 Pure hypercholesterolemia, unspecified; E78.5 Hyperlipidemia, unspecified; G47.00 Insomnia, unspecified; Z20.822 Contact with and (suspected) exposure to COVID-19; I27.20 Pulmonary hypertension, unspecified; I11.0 Hypertensive heart disease with heart failure; K21.9 Gastro-esophageal reflux disease without esophagitis; G47.31 Primary central sleep apnea; Z79.899 Other long term (current) drug therapy; Z85.841 Personal history of malignant neoplasm of brain; Z87.891 Personal history of nicotine dependence; Z93.0 Tracheostomy status; Z87.440 Personal history of urinary (tract) infections; Z88.5 Allergy status to narcotic agent; Z86.14 Personal history of Methicillin resistant Staphylococcus aureus infection; Z95.1 Presence of aortocoronary bypass graft; Z98.61 Coronary angioplasty status; Z74.01 Bed confinement status
CPT/HCPCS: 36415; 36600; 70450; 71045; 71275; 80053; 80305; 81001; 81003; 82803; 82948; 83605; 83880; 84145; 84443; 84484; 85018; 85025; 85610; 85730; 86885; 86900; 86901; 87040; 87081; 87088; 87635; 92508; 92616; 93005; 93306; 93970; 94640; 94760; 96365; 99285; C9803; G0378; J0360; J1644; J1940; J1956; J2543; J7030; Q9967

== ENCOUNTER 2022-05-19 09:54 | Day surgery (SDC) | payer MEDICARE, MEDICAID ==
[2022-05-19] VITALS (10 sets, daily range): BP systolic 105–171; BP diastolic 58–137
[~2022-05-19] VITALS: Ht 177.8 cm; Wt 90.7 kg
[~2022-05-19 09:54] MED LIST changes: -ALPR-624 PO; -CEFD300C3 PO; +CHOL10006 PO; -CITA10TA9 PO; +DIPH25CA83 PO; -FAMO40TA7 PO; +OMEP20CA16 PO; +TEST75GE10 TP; -ZOLP10TA5 PO; +ceFAZolin inj. 2,000 MG in dextrose 5%-water 100 ML IV ONE; +famotidine 20mg tablet PO ONE; +ringers solution, lacted 1,000 ML IV SCH
[2022-05-19 11:51] LABS: BASOPHILS % (AUTO) 0.6 % (0-1); EOSINOPHILS # (AUTO) 0.2 X10'3 (0-0.9); EOSINOPHILS % (AUTO) 2.3 % (0-6); LYMPHOCYTES # (AUTO) 1.7 X10'3 (1.1-4.8); LYMPHOCYTES % (AUTO) 19.6 % (21-51); MEAN CORPUSCULAR HEMOGLOBIN 28.3 PG (27.0-31.0); MEAN CORPUSCULAR HGB CONC 34.4 g/dL (33.0-36.5); MEAN CORPUSCULAR VOLUME 82.3 FL (78-98); MEAN PLATELET VOLUME 7.3 FL (7.4-10.4); MONOCYTES # (AUTO) 0.6 X10'3 (0-0.9); NEUTROPHILS # (AUTO) 6.3 X10'3 (1.8-7.7); NEUTROPHILS % (AUTO) 70.5 % (42-75); PRE OP HEMATOCRIT 44.2 % (42.0-52.0); PRE OP HEMOGLOBIN 15.2 g/dL (14.0-17.9); PRE OP PLATELET COUNT 223 X10'3 (140-440); RED BLOOD COUNT 5.37 X10'6 (4.70-6.10); RED CELL DISTRIBUTION WIDTH 17.1 % (11.5-14.5)
[2022-05-19 12:12] LABS: ALBUMIN/GLOBULIN RATIO 1.1 (1.1-1.5); ALKALINE PHOSPHATASE 118 IU/L (46-116); BLOOD UREA NITROGEN 22 MG/DL (7-18); BUN/CREATININE RATIO 12.8 (5.4-32.0); CALCIUM 8.8 MG/DL (8.5-10.1); CHLORIDE 102 MMOL/L (99-107); CREATININE 1.72 MG/DL (0.60-1.10); PRE OP ALT 23 U/L (30-65); PRE OP ANION GAP 9 (8-16); PRE OP AST 17 U/L (10-37); PRE OP BILIRUB, TOTAL 0.2 MG/DL (0.0-1.0); PRE OP GLUCOSE 93 MG/DL (70-104); PRE OP POTASSIUM 4.9 MMOL/L (3.4-5.1); PRE OP SODIUM 136 MMOL/L (135-145); TOTAL CARBON DIOXIDE 25.5 MMOL/L (24-32); TOTAL PROTEIN 7.6 G/DL (6.4-8.2); eGFR 40 ML/MIN
[2022-05-19] MEDS ORDERED: LIDOcaine 1%/PF 5ML 10 MG/ML VIAL ONE ×2 (13:49→13:56)
[2022-05-19] MEDS ORDERED: fentaNYL/PF 50MCG/1 ML 2ML syringe ONE (13:55)
[2022-05-19] MEDS ORDERED: midazolam 1 mg/ML 2ml injection ONE (13:55)
[2022-05-19] MEDS ORDERED: dexamethasone sod phosphate 4mg/ml inj. ONE (13:56)
[2022-05-19] MEDS ORDERED: ondansetron/PF 4mg/2ml inj ONE (13:57)
[2022-05-19] MEDS ORDERED: propofol inj 20 ML IV ONE (13:57)
[2022-05-19] MEDS ORDERED: hydrALAZINE 20mg/ml inj. IV PRN (14:00)
[2022-05-19] MEDS ORDERED: ondansetron/PF 4mg/2ml inj IV PRN (14:00)
[2022-05-19] MEDS ORDERED: ringers solution, lacted 1,000 ML IV SCH (14:00)
[2022-05-19] MEDS ORDERED: meperidine/PF 25mg/ml syringe IV PRN ×2 (14:00)
[2022-05-19] MEDS ORDERED: fentaNYL/PF 50MCG/1 ML 2ML syringe IV PRN ×2 (14:00)
[2022-05-19] MEDS ORDERED: labetalol 20mg/4ml (5mg/ml) syringe IV PRN (14:00)
[2022-05-19] MEDS ORDERED: desflurane 240ml liquid inh. IH ONE (14:04)
--- NOTE | 2022-05-19 14:25 | NUR ---
MULTIPLE CALLS PLACED TO DR PALACIOS'S OFFICE TO VERIFY THAT HOME HEALTH IS SET UP FOR PT. RECEIVED CONFIRMATION THAT IT HAS BEEN SET UP AND [facility] WILL BE AT PT'S RESIDENCE ON Tuesday05/21/22. Addendum: 05/19/22 at 1808 by Renetta Kohler RN INCORRECT TIME, TIME WAS 1625
--- NOTE | 2022-05-19 15:00 | NUR ---
Received from OR via [facility], accompanied by Anesthesiologist and report given by Anesthesiolgist. PT IS AWAKE ABD SITTING UP ON RSUPERIOR, ANSWERING QUESTIONS APPROPRIATELY AND IS ABLE TO BROWN. PT PLACED ON BEDSIDE MONITOR, VSS. PT RECEIVING 8L O2 TO MASK THAT IS SUPPLYING O2 TO PT'S TRACHEAL STOMA AND TOLERATING WELL, O2 SAT >97%. WILL TITIRATE DOWN PT TOLERATED. PT HAS 20G PIV TO RT FA WITH LR INFUSING ORDERED. PT HAS WV TO RT AND LEFT GROIN THAT IS CDI, SCANT SEROSANGUINEOUS DRAINAGE NOTED IN TUBING, CANISTER IS EMPTY AT THIS TIME. WV IS RUNNING @ 125mmHg. PT DENIES PAIN AT THIS TIME. WILL CONTINUE TO ASSESS.
[2022-05-19] MEDS ORDERED: acetaminophen 325mg/10.15ml oral unit dose solution PO PRN (15:35)
--- NOTE | 2022-05-19 16:30 | NUR ---
PT TAKEN OFF MONITOR TO GET DRESSED AND READY FOR D/C
--- NOTE | 2022-05-19 16:55 | NUR ---
PT HAS MET D/C CRITERIA. IV D/C'D. VSS. DRESSING C/D/I. I HAVE REVIEWED D/C INSTRUCTIONS WITH PATIENT AND PT'S AND HE HAS VERBALIZED UNDERSTANDING OF INSTRUCTIONS. PATIENT D/C HOME WITH ALL BELONGINGS AND HOME HEALTH WAS TO MANAGE PT'S WV AND WILL BE TO PT'S RESIDENCE Tuesday05/21/[address] PALACIOS'S OFFICE.
== END 2022-05-19 16:47 | disposition home or self-care (01) ==
LOC: PAS 09:54
PROVIDERS: ATTEND Surgery
DX: I89.8 Other specified noninfective disorders of lymphatic vessels and lymph nodes (principal); E03.9 Hypothyroidism, unspecified; Z79.899 Other long term (current) drug therapy; Z88.6 Allergy status to analgesic agent; Z91.09 Other allergy status, other than to drugs and biological substances; Z87.891 Personal history of nicotine dependence; Z98.890 Other specified postprocedural states
CPT/HCPCS: 11042; 36415; 80053; 85025; 87811; J0690; J1100; J2250; J2405; J2704; J3010; J3490; J7030; J7060; J7120; Z7506; Z7512; A4618; A6258; A6550; A7000

== ENCOUNTER 2022-05-20 19:05 | Emergency (ER) | payer MEDICARE, MEDICAID ==
[~2022-05-20] VITALS: Ht 177.8 cm; Wt 87.0 kg
[~2022-05-20 19:05] MED LIST changes: -ceFAZolin inj. 2,000 MG in dextrose 5%-water 100 ML IV ONE; -famotidine 20mg tablet PO ONE; -ringers solution, lacted 1,000 ML IV SCH
--- NOTE | 2022-05-20 22:41 | NUR ---
ATTEMPTED TO APPLY CLEAR OCCLUSIVE DRESSING OVER WOUND, DO NOT APPROPRIATE SUPPLIES IN THE ED TO RE-DO WOUND VAC. ATTEMPTING TO FIND WOUND VAC SEAL.
--- NOTE | 2022-05-20 22:46 | NUR ---
CALLED DR. BARRAZA PER DR. DESAI, MAIL BOX IS FULL, WILL CALL BACK IN 15MIN
[2022-05-20 23:09] VITALS: BP 138/76
== END 2022-05-20 23:11 | disposition home or self-care (01) ==
LOC: ER 19:06
DX: T81.9XXA Unspecified complication of procedure, initial encounter (principal); E78.00 Pure hypercholesterolemia, unspecified; I11.9 Hypertensive heart disease without heart failure; K21.9 Gastro-esophageal reflux disease without esophagitis; Z86.14 Personal history of Methicillin resistant Staphylococcus aureus infection; F17.200 Nicotine dependence, unspecified, uncomplicated; Z88.5 Allergy status to narcotic agent; Z79.899 Other long term (current) drug therapy; Z79.1 Long term (current) use of non-steroidal anti-inflammatories (NSAID)
CPT/HCPCS: 99284

== ENCOUNTER 2023-07-04 08:07 | Outpatient (CLI) | payer MEDICARE, MEDICAID ==
[2023-07-04] MEDS ORDERED: iohexol 350 MG/ML 50ML vial IV ONE (09:05)
[2023-07-04] MEDS ORDERED: iohexol 350MG/ML 100ml bottle IV ONE (09:06)
== END 2023-07-04 23:59 | disposition home or self-care (01) ==
LOC: RAD 08:07
PROVIDERS: ATTEND Internal Medicine Interventional Cardiology
DX: R16.1 Splenomegaly, not elsewhere classified (principal); I70.213 Atherosclerosis of native arteries of extremities with intermittent claudication, bilateral legs; E78.5 Hyperlipidemia, unspecified; I70.0 Atherosclerosis of aorta; I11.0 Hypertensive heart disease with heart failure; I50.9 Heart failure, unspecified; I70.8 Atherosclerosis of other arteries
CPT/HCPCS: 75635; J3490; Q9967